=== PATIENT | female | born 1940 | race Caucasian/White ===

== ENCOUNTER 2017-06-17 17:25 | Inpatient (IN) ==
--- NOTE | 2017-06-17 17:43 | Emergency Department Note ---
Disposition Clinical Impression: Generalized weakness, Cardiac enzymes elevated Disposition: Admitted As Inpatient Condition: Fair Referrals: Garrick Bruno MD [Primary Care Provider] - Forms: ED Satisfaction Letter Time of Disposition: 19:03 Weakness HPI - General Chief complaint: ED Weakness Stated complaint: fall/Weakness Time Seen by Provider: 06/17/17 17:30 Source: patient, EMS Mode of arrival: EMS Limitations: no limitations Nursing Notes Reviewed: Yes Vital Signs Reviewed: Yes - History of Present Illness HPI Narrative: Patient is a 77-year-old who lives by herself husbands in a residential who talked her this morning about 8:00 and then family members could not get a hold of her and the hemoglobin house afternoon and found her on the floor. She says she fell could not get up generalized weakness. She denies striking her head. She is oriented to person and place. She was able to get the month and the day but could not get the year right. Pt Subjective Complaint: generalized weakness/fatigue, other Onset (ago): hour(s) (All 10-12) Duration: constant Location: generalized Migration: none Improves with: none Worsens with: none Context: other (No weakness) All systems ED: reviewed and negative except as stated. Constitutional: Denies: fever, chills, weakness, weight change Eyes: Denies: eye pain, eye discharge, vision change ENT ED: Denies: ear pain, throat pain, dental pain, hearing loss, epistaxis, congestion, dysphagia Cardiovascular: Denies: chest pain, palpitations, dyspnea on exertion, edema, syncope Respiratory: Denies: cough, dyspnea, wheezes, hemoptysis, stridor Gastrointestinal: Denies: abdominal pain, nausea, vomiting, diarrhea, constipation, hematemesis, melena, hematochezia Genitourinary: Denies: dysuria, frequency, hematuria, discharge Musculoskeletal: Denies: back pain, neck pain, arthralgia, myalgia Integumentary: Denies: rash, abrasion, lesions Neurological: Reports: weakness. Denies: headache, numbness, paresthesias, confusion, abnormal gait, vertigo Psychiatric: Denies: anxiety, depression, suicidal thoughts, homicidal thoughts , auditory hallucinations, visual hallucinations Endocrine: Denies: fatigue Hematological/Lymphatic: Denies: easy bleeding, easy bruising Allergic/Immunologic: Denies: facial swelling, urticaria Physical Exam - General Limitations: no limitations General appearance: alert, in no apparent distress - Head Head exam: atraumatic, normocephalic, normal inspection - Eye Eye exam: Present: normal appearance, PERRL, EOMI - Expanded Eye Exam Pupils: Left: reactive - ENT ENT exam: normal exam, normal oropharynx, mucous membranes moist - Expanded ENT Exam External ear exam: Present: normal external inspection Mouth exam: Present: normal external inspection Teeth exam: Present: normal inspection Throat exam: Present: normal inspection - Neck Neck exam: Present: normal inspection, full ROM, trachea midline - Chest Chest inspection: Present: normal inspection, symmetric chest wall rise - Respiratory Respiratory exam: Present: normal lung sounds bilaterally - Cardiovascular Cardiovascular exam: Present: regular rate, normal rhythm, normal heart sounds - Abdominal Exam Abdominal exam: Present: soft, Non-Tender. Absent: tenderness, distention, guarding, rebound, rigidity - Extremities Exam Extremities exam: Present: normal inspection, full ROM. Absent: tenderness, pedal edema - Expanded Upper Extremity Exam Shoulder exam: Present: normal inspection, full ROM Arm exam: Present: normal inspection, full ROM Elbow exam: Present: normal inspection, full ROM Forearm/Wrist exam: Present: normal inspection, full ROM Hand exam: Present: normal inspection, full ROM Vascular exam: Normal: capillary refill, radial pulse - Expanded Lower Extremity Exam Hip/Pelvis exam: Present: normal inspection, full ROM Upper leg exam: Present: normal inspection, full ROM Knee exam: Present: normal inspection, full ROM Lower leg exam: Present: normal inspection, full ROM Ankle exam: Present: normal inspection, full ROM Foot/toe exam: Present: normal inspection, full ROM Neurovascular/Tendon exam: Absent: motor deficit, sensory deficit, tendon deficit - Back Exam Back exam: Present: normal inspection, full ROM. Absent: tenderness - Neurological Exam Neurological exam: Present: alert, oriented X3 - Expanded Neurological Exam Patient oriented to: Present: person, place, time Coma Scale Eye Opening: Spontaneous Coma Scale Motor Response: Obeys Commands Coma Scale Verbal Response: Oriented Coma Scale Total: 15 - Psychiatric Psychiatric exam: Present: normal affect, normal mood - Skin Skin exam: Present: warm, dry, intact, normal color Course - Reevaluation(s) Reevaluation #1: Patient was fell and was down on the ground about 10 hours. She has generalized weakness. She does have elevated CK. apartment maintenance worker actually knows her and her who is her caregiver is in a residential and the social media job titles actually thought she was in a residential does not feel that she safe to go home. Also has what appears to be a UTI. Time: 19:38 - Consultations Consultation #1: Discussed with bettye Acosta. Time: 19:40 Vital Signs Temperature 97.6 F 06/17/17 17:29 Pulse Rate 99 06/17/17 17:29 Respiratory Rate 18 06/17/17 17:29 Blood Pressure 167/110 06/17/17 17:29 O2 Sat by Pulse Oximetry 92 06/17/17 17:29 Temperature 97.6 F 06/17/17 17:29 Pulse Rate 91 06/17/17 19:35 Respiratory Rate 18 06/17/17 19:35 Blood Pressure 134/107 06/17/17 19:35 O2 Sat by Pulse Oximetry 99 06/17/17 19:35 Oxygen Delivery Oxygen Delivery Room Air Weakness - Lab Data Lab results reviewed: Yes I reviewed the patient's lab results. Result diagrams: 06/17/17 17:56 06/17/17 17:56 Lab Results 06/17/17 06/17/17 06/17/17 Range/Units 17:56 17:56 17:56 WBC 10.0 (4.3-11.1) K/mcL RBC 4.43 (3.82-4.97) M/mcL Hgb 13.4 (11.5-15.4) g/dL Hct 40.7 (35.3-44.9) % MCV 91.9 (83.0-100.0) fL MCH 30.2 (28.0-33.3) pg MCHC 32.9 (31.6-35.5) g/dL RDW 13.3 (11.5-14.5) % Plt Count 188 (140-400) K/mcL MPV 10.1 (9.4-12.4) fL Immature Gran % 0.4 (0-4) % Seg Neutrophils % 88.4 % Lymphocytes % 4.0 % Monocytes % 6.9 % Eosinophils % 0.0 % Basophils % 0.3 % Neutrophils # 8.8 (1.6-8.9) K/mcL Lymphocytes # 0.4 L (0.6-4.6) K/mcL Monocytes # 0.7 (0.0-1.3) K/mcL Eosinophils # 0.0 (0.0-0.6) K/mcL Basophils # 0.0 (0.0-0.2) K/mcL PT (9.4-12.1) Seconds INR APTT (26.0-36.0) Seconds Sodium 140 (136-145) mEq/L Potassium 3.1 L (3.5-5.1) mEq/L Chloride 103 (98-107) mEq/L Carbon Dioxide 28 (23-29) mEq/L BUN 11 (8-23) mg/dL Creatinine 0.39 L (0.60-1.20) mg/dL Est GFR ( Amer) > 60 (> 60) Est GFR (Non-Af Amer) > 60 (> 60) BUN/Creatinine Ratio 28 H (6-26) Glucose 107 H (70-105) mg/dL Calculated Osmolality 290 (280-300) Calcium 9.5 (8.6-10.3) mg/dL Total Bilirubin 2.1 H (0.3-1.0) mg/dL Direct Bilirubin 0.4 H (0.0-0.2) mg/dL Indirect Bilirubin 1.7 H (0.0-1.2) mg/dL AST 49 H (13-39) Units/L ALT 25 (7-52) Units/L Alkaline Phosphatase 95 (34-104) Units/L Creatine Kinase 783 H (30-223) Units/L Troponin I 0.04 H* (< 0.04) ng/mL Serum Total Protein 7.0 (6.4-8.9) g/dL Albumin 3.7 (3.5-5.7) g/dL Globulin 3.3 (2.4-3.5) g/dL Albumin/Globulin Ratio 1.1 (1.1-2.2) Amylase 18 L (29-103) Units/L Lipase 6 L (11-82) Units/L Urine Color (Yellow) Urine Clarity (Clear) Urine pH (5.0-8.0) pH Units Ur Specific Bunch (1.010-1.025) Urine Protein (Neg-Trace) mg/dL Urine Glucose (UA) (Normal) mg/dL Urine Ketones (Negative) mg/dL Urine Blood (Negative) Urine Nitrite (Negative) Urine Bilirubin (Negative) Urine Urobilinogen (Normal) mg/dL Ur Leukocyte Esterase (Negative) Urine Microscopic RBC (0-3) per hpf Urine Microscopic WBC (0-3) per hpf Ur Squamous Epith Cells (None-Few) per lpf Ur Renal Epithelial Cell (None-Few) per hpf Urine Bacteria (None-Few) per hpf Hyaline Casts (None-Few) per lpf Ur Culture Indicated? (NO) 06/17/17 06/17/17 Range/Units 17:56 18:21 WBC (4.3-11.1) K/mcL RBC (3.82-4.97) M/mcL Hgb (11.5-15.4) g/dL Hct (35.3-44.9) % MCV (83.0-100.0) fL MCH (28.0-33.3) pg MCHC (31.6-35.5) g/dL RDW (11.5-14.5) % Plt Count (140-400) K/mcL MPV (9.4-12.4) fL Immature Gran % (0-4) % Seg Neutrophils % % Lymphocytes % % Monocytes % % Eosinophils % % Basophils % % Neutrophils # (1.6-8.9) K/mcL Lymphocytes # (0.6-4.6) K/mcL Monocytes # (0.0-1.3) K/mcL Eosinophils # (0.0-0.6) K/mcL Basophils # (0.0-0.2) K/mcL PT 12.1 (9.4-12.1) Seconds INR 1.1 APTT 29.2 (26.0-36.0) Seconds Sodium (136-145) mEq/L Potassium (3.5-5.1) mEq/L Chloride (98-107) mEq/L Carbon Dioxide (23-29) mEq/L BUN (8-23) mg/dL Creatinine (0.60-1.20) mg/dL Est GFR ( Amer) (> 60) Est GFR (Non-Af Amer) (> 60) BUN/Creatinine Ratio (6-26) Glucose (70-105) mg/dL Calculated Osmolality (280-300) Calcium (8.6-10.3) mg/dL Total Bilirubin (0.3-1.0) mg/dL Direct Bilirubin (0.0-0.2) mg/dL Indirect Bilirubin (0.0-1.2) mg/dL AST (13-39) Units/L ALT (7-52) Units/L Alkaline Phosphatase (34-104) Units/L Creatine Kinase (30-223) Units/L Troponin I (< 0.04) ng/mL Serum Total Protein (6.4-8.9) g/dL Albumin (3.5-5.7) g/dL Globulin (2.4-3.5) g/dL Albumin/Globulin Ratio (1.1-2.2) Amylase (29-103) Units/L Lipase (11-82) Units/L Urine Color Yellow (Yellow) Urine Clarity Cloudy A (Clear) Urine pH 6.5 (5.0-8.0) pH Units Ur Specific Bunch 1.018 (1.010-1.025) Urine Protein 100 H (Neg-Trace) mg/dL Urine Glucose (UA) Normal (Normal) mg/dL Urine Ketones 15 H (Negative) mg/dL Urine Blood Small H (Negative) Urine Nitrite Positive A (Negative) Urine Bilirubin Negative (Negative) Urine Urobilinogen Normal (Normal) mg/dL Ur Leukocyte Esterase Small H (Negative) Urine Microscopic RBC 0-3 (0-3) per hpf Urine Microscopic WBC 30-50 H (0-3) per hpf Ur Squamous Epith Cells None Seen (None-Few) per lpf Ur Renal Epithelial Cell Few (None-Few) per hpf Urine Bacteria Many H (None-Few) per hpf Hyaline Casts Moderate H (None-Few) per lpf Ur Culture Indicated? YES A (NO) - Radiology Data Radiology results reviewed: Yes I reviewed the patient's radiology results. Chest X-Ray 06/17/17 17:35 IMPRESSION: 1. Cardiomegaly. 2. Calcific atherosclerosis aorta. 3. Irregularity proximal medial left humerus could be related to fracture or chronic glenohumeral osteoarthritic change. 4. No acute pulmonary abnormality evident. D/ / Henrique Kenney / Henrique Kenney Interpreting Provider: Henrique Kenney Head CT 06/17/17 17:36 IMPRESSION: No acute intracranial abnormality. D/ / Henrique Kenney / Henrique Kenney Interpreting Provider: Henrique Kenney - EKG Data EKG attestation: Yes I reviewed and interpreted this EKG. Rate: normal Rhythm: A.Fib Interpretation: other (New A. fib) NIH Stroke Scale - Level of Consciousness LOC: Alert - LOC Questions LOC Questions: Answers both correctly - LOC Commands LOC Commands: Performs both correctly - Best Gaze Best Gaze: Normal - Visual Visual: No visual loss - Facial Palsy Facial Palsy: Normal - Motor Arms Motor Arm-Left: No drift for 10 seconds Motor Arm-Right: No drift for 10 seconds - Motor Legs Motor Leg-Left: No drift for 5 seconds Motor Leg-Right: No drift for 5 seconds - Limb Ataxia Limb Ataxia: Normal, No Ataxia - Sensory Sensory: Normal - Best Language Best Language: No aphasia - Dysarthria Dysarthria: Normal - Extinction and Inattention Extinction and Inattention: Normal - NIHSS Total Score NIHSS Total Score: 0
[2017-06-17 18:18] LABS: Basophils % 0.3 %; Hematocrit 40.7 % (35.3-44.9); Hemoglobin 13.4 g/dL (11.5-15.4); Immature Granulocytes % 0.4 % (0-4); Lymphocytes # 0.4 K/mcL (0.6-4.6); Mean Corpuscular HGB Conc 32.9 g/dL (31.6-35.5); Mean Corpuscular Hemoglobin 30.2 pg (28.0-33.3); Mean Corpuscular Volume 91.9 fL (83.0-100.0); Mean Platelet Volume 10.1 fL (9.4-12.4); Monocytes # 0.7 K/mcL (0.0-1.3); Monocytes % 6.9 %; Neutrophils # 8.8 K/mcL (1.6-8.9); Platelet Count 188 K/mcL (140-400); Red Blood Count 4.43 M/mcL (3.82-4.97); Red Cell Distribution Width 13.3 % (11.5-14.5); Segmented Neutrophils % 88.4 %
[2017-06-17 18:32] LABS: Alanine Aminotransferase 25 Units/L (7-52); Albumin 3.7 g/dL (3.5-5.7); Albumin/Globulin Ratio 1.1 (1.1-2.2); Alkaline Phosphatase 95 Units/L (34-104); Amylase 18 Units/L (29-103); Aspartate Amino Transferase 49 Units/L (13-39); BUN/Creatinine Ratio 28 (6-26); Bilirubin,Direct 0.4 mg/dL (0.0-0.2); Bilirubin,Indirect 1.7 mg/dL (0.0-1.2); Bilirubin,Total 2.1 mg/dL (0.3-1.0); Blood Urea Nitrogen 11 mg/dL (8-23); Calcium 9.5 mg/dL (8.6-10.3); Carbon Dioxide 28 mEq/L (23-29); Chloride 103 mEq/L (98-107); Creatine Kinase 783 Units/L (30-223); Globulin 3.3 g/dL (2.4-3.5); Glucose 107 mg/dL (70-105); Lipase 6 Units/L (11-82); Osmolality,Calculated 290 (280-300); Potassium 3.1 mEq/L (3.5-5.1); Sodium 140 mEq/L (136-145); eGFR For African Americans > 60 (> 60); eGFR For Non-African Americans > 60 (> 60)
[2017-06-17 18:41] LABS: Bilirubin,Urine Negative (Negative); Blood,Urine Small (Negative); Clarity,Urine Cloudy (Clear); Color,Urine Yellow (Yellow); Glucose,Urine (UA) Normal (Normal); Ketones,Urine 15 mg/dL (Negative); Leukocyte Esterase,Urine Small (Negative); Nitrite,Urine Positive (Negative); PH,Urine 6.5 pH Units (5.0-8.0); Protein,Urine 100 mg/dL (Neg-Trace); Specific Gravity,Urine 1.018 (1.010-1.025); Urobilinogen,Urine Normal (Normal)
[2017-06-17 18:43] LABS: Bacteria,Urine Many per hpf (None-Few); RBC,Urine 0-3 per hpf (0-3); Squamous Epithelial Cell,Urine None Seen per lpf (None-Few); WBC,Urine 30-50 per hpf (0-3)
[2017-06-17 18:57] LABS: INR 1.1; Prothrombin Time 12.1 Seconds (9.4-12.1)
[2017-06-17 19:00] LABS: Renal Epithelial Cells,Urine Few per hpf (None-Few)
[2017-06-17 19:00] LABS: Activated Partial Thrombo Time 29.2 Seconds (26.0-36.0)
[2017-06-17 19:01] LABS: Hyaline Casts,Urine Moderate per lpf (None-Few)
[2017-06-17] MEDS: 0.9 % Sodium Chloride 1,000 ML IVC SCH (19:36)
[2017-06-17] MEDS ORDERED: cefTRIAXone 1,000 MG in Water for inj. (sterile) 20 ML 10 ML IVP ONE (19:39)
[2017-06-18] MEDS ORDERED: Naloxone 0.4 MG/ML INJ IVP PRN (02:59)
[2017-06-18] MEDS ORDERED: Acetaminophen 325 MG TABLET PO PRN (02:59)
[2017-06-18] MEDS ORDERED: 0.9 % Sodium Chloride 1,000 ML IVC SCH (03:00)
--- NOTE | 2017-06-18 03:26 | Internal Med History&Physical ---
Date of Encounter: 06/18/17 Time of Encounter: 03:18 Assessment and Plan (1) Fall Current visit: Yes Status: Acute 77/female Multiple comorbid conditions. Noted that she had a fall and was on the ground for unknown duration of time. Was brought to the emergency room for further evaluation. Biochemically elevated troponin likely secondary to demand ischemia Elevated CK likely secondary to rhabdomyolysis Unknown cause for elevated bilirubin. Imaging: Head CT: Negative for any acute event. EKG reviewed: Unlikely atrial fibrillation as P waves are present, likely multifocal atrial tachycardia. On examination: Patient has multiple bruises on her back. On the right shoulder patient has a 5 cm x 9 cm bruise present No obvious head injury noted. Assessment: Fall secondary to possibly underlying urinary tract infection Rhabdomyolysis is secondary to the fall. With associated multiple comorbid conditions. Plan: Admit is a inpatient. Fall precaution. Blood culture: IV ceftriaxone 1 g 24 hours. Replace potassium intravenously/orally. PTOT evaluation. bone worker consult. Of note: I examined this patient in [id number] Long with the charge nurse Priya was present. Explained patient at length regarding the plan of care Qualifiers: Encounter type: initial encounter Qualified Code(s): W19.XXXA - Unspecified fall, initial encounter (2) UTI (urinary tract infection) Current visit: Yes Status: Acute See above Qualifiers: Urinary tract infection type: acute cystitis Hematuria presence: without hematuria Qualified Code(s): N30.00 - Acute cystitis without hematuria (3) Hypertension Current visit: Yes Status: Acute Patient is known to have a elevated blood pressure. At this point her blood pressure is very well controlled. We will resume the home medication. Qualifiers: Hypertension type: essential hypertension Qualified Code(s): I10 - Essential (primary) hypertension (4) Cardiac enzymes elevated Current visit: Yes Status: Acute Cardiac enzymes is likely secondary to demand ischemia. We will cycle the troponin. (5) DVT prophylaxis Current visit: Yes Status: Acute SCD Medical decision making: This patient has a moderate to severe risk of worsening in spite of being on appropriate medication due to the underlying chronic comorbid conditions. Internal Medicine - H&P: HPI Chief complaint: fall Admitted From: Emergency Dept Plans for Post Hospital Care: Home History of present illness: Ms. Tena is a 77 year old female whose primary care provider is Dr Garrick Bruno. she has background medical history of hypertension, urinary incontinence and history of previous fall. This morning patient went and saw her in a shelter and after that she went back to her own house. Multiple family members were tried to call her. She was not responding to their call. One of the family member went to her house and found that she was on the floor for unknown duration of time. Patient was made to get up from the floor and was brought to the emergency department for further evaluation. Patient is very lethargic, she answers the questions in monosyllables, oriented to the patient she claims that she is not used to the hospital environment and that is why she is very stressful in the hospital. Patient is alert oriented and she knows that she had a fall but she was so weak that she was not able to get up and ask for help. Patient denies chest pain, nausea, vomiting, abdominal pain, dizziness and diarrhea. Workup in the emergency room: Patient was evaluated in the emergency room. Basic labs were drawn. Noted that creatinine kinase is elevated. Patient UA is suggestive of urinary tract infection. CT head was negative for any acute abnormalities. Reason for admission: Fall in a patient who has likely urinary tract infection with multiple comorbidities. Past Med Surg Social Fam HX - Past Medical History Medical history: hypertension Psychiatric history: no psych history - Social History Smoking Status: Never smoker Smokeless Tobacco Status: No Alcohol use: none Drug use: none Internal Medicine - H&P: Meds Atenolol [Tenormin] 50 mg PO BID 06/17/17 [History] Calcium Citrate 200 mg PO BID 06/17/17 [History] Multivitamin [One Daily Essential] 1 each PO DAILY 06/17/17 [History] Oxybutynin [Ditropan] 5 mg PO BID 06/17/17 [History] Paroxetine HCl [Paxil] 10 mg PO QAM 06/17/17 [History] Potassium Chloride [Klor-Con 10] 10 meq PO DAILY 06/17/17 [History] 3 Allergy/AdvReac Type Severity Reaction Status Date / Time clarithromycin [From Biaxin] AdvReac See Verified 06/17/17 20:17 Comments codeine AdvReac See Verified 06/17/17 20:17 Comments Zolpidem [From Ambien] AdvReac See Verified 06/17/17 20:17 Comments All Systems PM: A 10-system review of systems was performed and is negative for pertinent findings except as documented above in the HPI. - Constitutional Constitutional: chills, fatigue, falls, lethargy, malaise, weakness - Constitutional Vitals: Temp Pulse Resp BP Pulse Ox 98.4 F 84 16 159/105 96 06/17/17 20:40 06/18/17 00:30 06/18/17 00:30 06/18/17 00:30 06/18/17 00:30 General appearance: Present: A&O X 3, pleasant, no acute distress, answers questions appropriately - Head Head exam: Present: atraumatic, normocephalic - Eye Eye exam: Present: PERRL, conjuntiva pink, sclera anicteric Pupils: Present: PERRL - Neck Neck exam general surgery: Present: supple, trachea midline. Absent: lymphadenopathy - Respiratory Respiratory exam: Present: CTAB. Absent: accessory muscle use, rales, rhonchi, wheezes - Cardiovascular Cardiovascular exam: Present: RRR, +S1, +S2. Absent: diastolic murmur, gallop, rubs, systolic murmur - GI/Abdominal GI/Abdominal exam: Present: normal bowel sounds, soft, no peritoneal signs. Absent: distended, tenderness - Extremities Exam Extremities exam: Present: warm, radial pulses palpable and symmetrical. Absent : calf tenderness, cyanotic, pedal edema - Neurological Exam Neurological exam: Present: CN II-XII intact, oriented X3, no focal deficits. Absent: pronater drift, facial droop, speech deficit - Skin Skin exam: Present: dry, intact Internal Med - H&P Results - Labs CBC & Chem 7: 06/17/17 17:56 06/17/17 17:56
[2017-06-18 04:28] LABS: Basophils % 0.3 %; Eosinophils % 0.5 %; Hematocrit 35.1 % (35.3-44.9); Immature Granulocytes % 0.3 % (0-4); Lymphocytes # 0.6 K/mcL (0.6-4.6); Lymphocytes % 8.2 %; Mean Corpuscular HGB Conc 33.6 g/dL (31.6-35.5); Mean Corpuscular Hemoglobin 30.9 pg (28.0-33.3); Mean Corpuscular Volume 91.9 fL (83.0-100.0); Mean Platelet Volume 10.5 fL (9.4-12.4); Monocytes # 0.6 K/mcL (0.0-1.3); Monocytes % 7.9 %; Neutrophils # 6.5 K/mcL (1.6-8.9); Platelet Count 175 K/mcL (140-400); Red Blood Count 3.82 M/mcL (3.82-4.97); Red Cell Distribution Width 13.3 % (11.5-14.5); Segmented Neutrophils % 82.8 %
[2017-06-18 04:31] LABS: Hemoglobin 11.8 g/dL (11.5-15.4)
[2017-06-18 04:50] LABS: Alanine Aminotransferase 22 Units/L (7-52); Albumin 3.1 g/dL (3.5-5.7); Alkaline Phosphatase 80 Units/L (34-104); Aspartate Amino Transferase 43 Units/L (13-39); BUN/Creatinine Ratio 32 (6-26); Bilirubin,Total 1.8 mg/dL (0.3-1.0); Blood Urea Nitrogen 12 mg/dL (8-23); Calcium 8.9 mg/dL (8.6-10.3); Carbon Dioxide 25 mEq/L (23-29); Chloride 108 mEq/L (98-107); Chol/HDL Ratio 2.2 (0-4.9); Cholesterol 151 mg/dL (< 200); Glucose 73 mg/dL (70-105); HDL Cholesterol 68 mg/dL (40-59); LDL Cholesterol,Calculated 69 mg/dL (0-99); Magnesium 1.9 mg/dL (1.6-2.6); Osmolality,Calculated 288 (280-300); Phosphorous 2.7 mg/dL (2.7-4.5); Potassium 3.1 mEq/L (3.5-5.1); Sodium 140 mEq/L (136-145); Total Protein 6.1 g/dL (6.4-8.9); Triglycerides 68 mg/dL (< 150); eGFR For African Americans > 60 (> 60); eGFR For Non-African Americans > 60 (> 60)
[2017-06-18] MEDS: 0.9 % Sodium Chloride 1,000 ML IVC SCH (05:24)
[2017-06-18] MEDS: Multivit/Ca/Min/Fe/FA 1 TAB TABLET PO SCH (09:28)
--- NOTE | 2017-06-18 11:18 | Event Note ---
Date of Encounter: 06/18/17 Time of Encounter: 11:18 77-year-old female who was admitted following a fall, likely rhabdomyolysis, urinary tract infection. She has a history of multiple falls in the past. The patient is home alone, and is very resistant to going to a assisted. She is to be home alone. We will continue current management, we will follow the urine culture sensitivity, we will consult psychiatry for decisional capacity.
[2017-06-18] MEDS ORDERED: cefTRIAXone 1,000 MG in Water for inj. (sterile) 20 ML 20 ML IVPB SCH (12:00)
--- NOTE | 2017-06-18 16:32 | Consult Note ---
Date of Encounter: 06/18/17 Time of Encounter: 16:26 Assessment & Recommendation (1) Generalized weakness Current visit: Yes Status: Acute Assessment & Recommendation: Client seems to be mentating fairly well although she greatly minimizes her physical health issues. Doubt she is safe to be alone but I would not say she lacks capacity at this point. When this documentation writer spoke with her she understood it was the team's recommendation that she go to a [facility]/rehab facility. She was able to say why this is the recommendation and what the risks are to her if she refuses. She did say her niece and nephew are looking at placement options for her and that she trusts their judgment. Would recommend using family supports to help with this decision. Would also recommend getting a POA for client as this issue is likely to come up again. (2) UTI (urinary tract infection) Current visit: Yes Status: Acute Qualifiers: Urinary tract infection type: acute cystitis Hematuria presence: without hematuria Qualified Code(s): N30.00 - Acute cystitis without hematuria History of Present Illness Requesting Physician: Everett Hutchins Reason for consult: capacity assessment History of present illness: Ms. Tena is a 77 year old female who was admitted secondary to falling at home. Found to have a UTI. Client is wanting to return home and psychiatry was asked to assess whether she has the capacity to refuse care as she seems unable to care for herself in the home. On eval today client is pleasant but rather rambling. She denies having a mental health history. No evidence of a mood or thought disorder on exam. She is alert and oriented but goes off on tangents when talking. She is aware of the team's recommendation that she go to a [facility]. She denied needing home health services but did not seem opposed to a mcfp/rehab stay and actually said her niece and nephew are looking into placements for her. She stated she trusted their judgment. CC: Everett Hutchins Past Med Surg Social Fam HX - Past Medical History Medical history: hypertension - Past Psychiatric History Psychiatric history: Reports: no psych history Family psychiatric history: Unknown Family History of Suicide: Unknown - Social History Smoking Status: Never smoker Smokeless Tobacco Status: No Alcohol use: none Drug use: none Medications & Allergies Atenolol [Tenormin] 50 mg PO BID 06/17/17 [History] Calcium Citrate 200 mg PO BID 06/17/17 [History] Multivitamin [One Daily Essential] 1 each PO DAILY 06/17/17 [History] Oxybutynin [Ditropan] 5 mg PO BID 06/17/17 [History] Paroxetine HCl [Paxil] 10 mg PO QAM 06/17/17 [History] Potassium Chloride [Klor-Con 10] 10 meq PO DAILY 06/17/17 [History] 3 Allergy/AdvReac Type Severity Reaction Status Date / Time clarithromycin [From Biaxin] AdvReac See Verified 06/17/17 20:17 Comments codeine AdvReac See Verified 06/17/17 20:17 Comments Zolpidem [From Ambien] AdvReac See Verified 06/17/17 20:17 Comments Review of Systems Constitutional: Denies: fever, chills, weakness, weight change Eyes: Denies: eye pain, vision change Ears, Nose, Throat: Denies: ear pain, throat pain, dental pain, hearing loss, congestion Cardiovascular: Denies: chest pain, palpitations, dyspnea on exertion Respiratory: Denies: cough, dyspnea, wheezes Gastrointestinal: Denies: abdominal pain, nausea, vomiting, diarrhea, constipation Genitourinary male: Denies: urgency, dysuria, frequency, genital lesions Genitourinary female: Denies: urgency, dysuria, frequency, abnormal menses, dyspareunia Musculoskeletal: Denies: joint swelling, joint pain Integumentary: Denies: rash, lesions, pruritus Neurological: Denies: headache, weakness, numbness, memory loss Endocrine: Denies: fatigue, heat or cold intolerance Hematologic/Lymphatic: Denies: easy bruising, lymphadenopathy Allergic/Immunologic: Denies: urticaria, itchy eyes Mental Status Exam Patient orientation: Yes Person, Yes Time, Yes Place Level of alertness: Alert Patient appearance: Unkempt Behavior: calm Psychomotor activity: Normal Eye contact: Maintains Eye Contact Mood description: Euthymic/stable Affect description: congruent with mood, full range Speech pattern: Rambling Speech volume: Normal Thought process: Tangential Thought content: No Suicidal ideation, No Homicidal ideation, No Overt delusions Perceptual disturbances: No Auditory hallucinations, No Visual hallucinations Attention span: Capable of Focused Attention Memory description: Grossly Intact Patient reliability: Questionable Historian Intelligence estimate: Average Judgment: Limited Insight: Partial Results - Vital Signs Vital signs: Temp Pulse Resp BP Pulse Ox 100.1 F H 69 17 130/77 97 06/18/17 15:00 06/18/17 16:04 06/18/17 16:04 06/18/17 16:04 06/18/17 16:04 - Labs Labs: Laboratory Last Values WBC 7.8 K/mcL (4.3-11.1) 06/18/17 04:06 RBC 3.82 M/mcL (3.82-4.97) 06/18/17 04:06 Hgb 11.8 g/dL (11.5-15.4) D 06/18/17 04:06 Hct 35.1 % (35.3-44.9) L 06/18/17 04:06 MCV 91.9 fL (83.0-100.0) 06/18/17 04:06 MCH 30.9 pg (28.0-33.3) 06/18/17 04:06 MCHC 33.6 g/dL (31.6-35.5) 06/18/17 04:06 RDW 13.3 % (11.5-14.5) 06/18/17 04:06 Plt Count 175 K/mcL (140-400) 06/18/17 04:06 MPV 10.5 fL (9.4-12.4) 06/18/17 04:06 Immature Gran % 0.3 % (0-4) 06/18/17 04:06 Seg Neutrophils % 82.8 % 06/18/17 04:06 Lymphocytes % 8.2 % 06/18/17 04:06 Monocytes % 7.9 % 06/18/17 04:06 Eosinophils % 0.5 % 06/18/17 04:06 Basophils % 0.3 % 06/18/17 04:06 Neutrophils # 6.5 K/mcL (1.6-8.9) 06/18/17 04:06 Lymphocytes # 0.6 K/mcL (0.6-4.6) 06/18/17 04:06 Monocytes # 0.6 K/mcL (0.0-1.3) 06/18/17 04:06 Eosinophils # 0.0 K/mcL (0.0-0.6) 06/18/17 04:06 Basophils # 0.0 K/mcL (0.0-0.2) 06/18/17 04:06 PT 12.1 Seconds (9.4-12.1) 06/17/17 17:56 INR 1.1 06/17/17 17:56 APTT 29.2 Seconds (26.0-36.0) 06/17/17 17:56 Sodium 140 mEq/L (136-145) 06/18/17 04:06 Potassium 3.1 mEq/L (3.5-5.1) L 06/18/17 04:06 Chloride 108 mEq/L (98-107) H 06/18/17 04:06 Carbon Dioxide 25 mEq/L (23-29) 06/18/17 04:06 BUN 12 mg/dL (8-23) 06/18/17 04:06 Creatinine 0.37 mg/dL (0.60-1.20) L 06/18/17 04:06 Est GFR ( Amer) > 60 (> 60) 06/18/17 04:06 Est GFR (Non-Af Amer) > 60 (> 60) 06/18/17 04:06 BUN/Creatinine Ratio 32 (6-26) H 06/18/17 04:06 Glucose 73 mg/dL (70-105) 06/18/17 04:06 Calculated Osmolality 288 (280-300) 06/18/17 04:06 Calcium 8.9 mg/dL (8.6-10.3) 06/18/17 04:06 Phosphorus 2.7 mg/dL (2.7-4.5) 06/18/17 04:06 Magnesium 1.9 mg/dL (1.6-2.6) 06/18/17 04:06 Total Bilirubin 1.8 mg/dL (0.3-1.0) H 06/18/17 04:06 Direct Bilirubin 0.4 mg/dL (0.0-0.2) H 06/17/17 17:56 Indirect Bilirubin 1.7 mg/dL (0.0-1.2) H 06/17/17 17:56 AST 43 Units/L (13-39) H 06/18/17 04:06 ALT 22 Units/L (7-52) 06/18/17 04:06 Alkaline Phosphatase 80 Units/L (34-104) 06/18/17 04:06 Creatine Kinase 505 Units/L (30-223) H 06/18/17 04:06 Troponin I 0.04 ng/mL (< 0.04) H* 06/18/17 14:42 Serum Total Protein 6.1 g/dL (6.4-8.9) L 06/18/17 04:06 Albumin 3.1 g/dL (3.5-5.7) L 06/18/17 04:06 Globulin 3.0 g/dL (2.4-3.5) 06/18/17 04:06 Albumin/Globulin Ratio 1.0 (1.1-2.2) L 06/18/17 04:06 Triglycerides 68 mg/dL (< 150) 06/18/17 04:06 Cholesterol 151 mg/dL (< 200) 06/18/17 04:06 LDL Cholesterol, Calc 69 mg/dL (0-99) 06/18/17 04:06 VLDL Cholesterol, Calc 14 mg/dL (< 31) 06/18/17 04:06 HDL Cholesterol 68 mg/dL (40-59) H 06/18/17 04:06 Cholesterol/HDL Ratio 2.2 (0-4.9) 06/18/17 04:06 Amylase 18 Units/L (29-103) L 06/17/17 17:56 Lipase 6 Units/L (11-82) L 06/17/17 17:56 Urine Color Yellow (Yellow) 06/17/17 18:21 Urine Clarity Cloudy (Clear) A 06/17/17 18:21 Urine pH 6.5 pH Units (5.0-8.0) 06/17/17 18:21 Ur Specific Portal 1.018 (1.010-1.025) 06/17/17 18:21 Urine Protein 100 mg/dL (Neg-Trace) H 06/17/17 18:21 Urine Glucose (UA) Normal mg/dL (Normal) 06/17/17 18:21 Urine Ketones 15 mg/dL (Negative) H 06/17/17 18:21 Urine Blood Small (Negative) H 06/17/17 18:21 Urine Nitrite Positive (Negative) A 06/17/17 18:21 Urine Bilirubin Negative (Negative) 06/17/17 18:21 Urine Urobilinogen Normal mg/dL (Normal) 06/17/17 18:21 Ur Leukocyte Esterase Small (Negative) H 06/17/17 18:21 Urine Microscopic RBC 0-3 per hpf (0-3) 06/17/17 18:21 Urine Microscopic WBC 30-50 per hpf (0-3) H 06/17/17 18:21 Ur Squamous Epith Cells None Seen per lpf (None-Few) 06/17/17 18:21 Ur Renal Epithelial Cell Few per hpf (None-Few) 06/17/17 18:21 Urine Bacteria Many per hpf (None-Few) H 06/17/17 18:21 Hyaline Casts Moderate per lpf (None-Few) H 06/17/17 18:21 Ur Culture Indicated? YES (NO) A 06/17/17 18:21 Consult Discharge Plan - Plan Referrals: Garrick Bruno MD [Primary Care Provider] -
[2017-06-18] MEDS: cefTRIAXone 1,000 MG in Water for inj. (sterile) 20 ML 20 ML IVPB SCH (20:38)
[2017-06-19 05:08] LABS: Basophils % 0.2 %; Eosinophils # 0.2 K/mcL (0.0-0.6); Eosinophils % 2.3 %; Hematocrit 35.5 % (35.3-44.9); Hemoglobin 11.7 g/dL (11.5-15.4); Immature Granulocytes % 0.4 % (0-4); Lymphocytes # 0.8 K/mcL (0.6-4.6); Lymphocytes % 9.5 %; Mean Platelet Volume 10.2 fL (9.4-12.4); Monocytes # 0.8 K/mcL (0.0-1.3); Monocytes % 9.1 %; Neutrophils # 6.7 K/mcL (1.6-8.9); Platelet Count 194 K/mcL (140-400); Red Cell Distribution Width 13.5 % (11.5-14.5); Segmented Neutrophils % 78.5 %
[2017-06-19 05:39] LABS: BUN/Creatinine Ratio 32 (6-26); Blood Urea Nitrogen 12 mg/dL (8-23); Calcium 8.8 mg/dL (8.6-10.3); Carbon Dioxide 27 mEq/L (23-29); Chloride 106 mEq/L (98-107); Creatine Kinase 260 Units/L (30-223); Glucose 103 mg/dL (70-105); Osmolality,Calculated 284 (280-300); Potassium 3.9 mEq/L (3.5-5.1); Sodium 137 mEq/L (136-145); eGFR For African Americans > 60 (> 60); eGFR For Non-African Americans > 60 (> 60)
[2017-06-19] MEDS: Multivit/Ca/Min/Fe/FA 1 TAB TABLET PO SCH (08:57)
--- NOTE | 2017-06-19 11:17 | Internal Med Progress Note ---
Date of Encounter: 06/19/17 Time of Encounter: 11:00 - Assessment and plan (1) Cardiac enzymes elevated Current Visit: Yes Status: Resolved Assessment and plan: Adynamic, non-ischemic. Trop 0.04-0.04 (2) DVT prophylaxis Current Visit: Yes Status: Acute Assessment and plan: Heparin SQ (3) Fall Current Visit: Yes Status: Acute Assessment and plan: PTOT eval noted Continue fall precautions Qualifiers: Encounter type: initial encounter Qualified Code(s): W19.XXXA - Unspecified fall, initial encounter (4) Hypertension Current Visit: Yes Status: Chronic Assessment and plan: Mostly controlled for age, continue tenormin. Consider adding Norvasc id necessary Qualifiers: Hypertension type: essential hypertension Qualified Code(s): I10 - Essential (primary) hypertension (5) UTI (urinary tract infection) Current Visit: Yes Status: Acute Assessment and plan: Due to E.coli, continue rocephin, sensitivity is pending Patient had one fever of 100.1, not septic Blood culture is negative Qualifiers: Urinary tract infection type: acute cystitis Hematuria presence: without hematuria Qualified Code(s): N30.00 - Acute cystitis without hematuria (6) Hypokalemia Current Visit: Yes Status: Resolved Assessment and plan: 3.1 06/18, improved with replacement - Subjective Interval history: Seen and evaluated at the bedside Patient with fall, and E.coli UTI She also had hypokalemia on arrival which has since improved - Constitutional Vitals: Temp Pulse Resp BP Pulse Ox 99 F 67 18 169/82 99 06/19/17 07:11 06/19/17 07:11 06/19/17 07:11 06/19/17 07:11 06/19/17 07:11 General appearance: Present: disheveled, A&O X 3, pleasant, no acute distress, answers questions appropriately - Head Head exam: Present: atraumatic, normocephalic - Eye Eye exam: Present: PERRL, conjuntiva pink, sclera anicteric Pupils: Present: PERRL - Neck Neck exam general surgery: Present: supple, trachea midline. Absent: lymphadenopathy - Respiratory Respiratory exam: Present: CTAB. Absent: accessory muscle use, rales, rhonchi, wheezes - Cardiovascular Cardiovascular exam: Present: RRR, +S1, +S2. Absent: diastolic murmur, gallop, rubs, systolic murmur - GI/Abdominal GI/Abdominal exam: Present: normal bowel sounds, soft, no peritoneal signs. Absent: distended, tenderness - Extremities Exam Extremities exam: Present: warm, radial pulses palpable and symmetrical. Absent : calf tenderness, cyanotic, pedal edema - Neurological Exam Neurological exam: Present: alert, CN II-XII intact, oriented X3, no focal deficits. Absent: pronater drift, facial droop, speech deficit - Skin Skin exam: Present: dry, intact Internal Medicine: Result - Labs CBC & Chem 7: 06/19/17 04:41 06/19/17 04:41 Labs: Short CBC 06/19/17 Range/Units 04:41 WBC 8.6 (4.3-11.1) K/mcL Hgb 11.7 (11.5-15.4) g/dL Hct 35.5 (35.3-44.9) % Plt Count 194 (140-400) K/mcL Neutrophils # 6.7 (1.6-8.9) K/mcL BMP 06/19/17 04:41 Sodium 137 Potassium 3.9 Chloride 106 Carbon Dioxide 27 BUN 12 Creatinine 0.37 L Glucose 103 Calcium 8.8 Cardiac Enzymes 06/18/17 Range/Units 14:42 Troponin I 0.04 H* (< 0.04) ng/mL - ABG Interpretation ABG results: PT/INR, D-dimer PT 12.1 Seconds (9.4-12.1) 06/17/17 17:56 Consult Discharge Plan - Plan Instructions: Urinary Tract Infection in Women (DC), Chronic Hypertension (DC) , Fall Prevention (DC) Referrals: Garrick Bruno MD [Primary Care Provider] -
[2017-06-19] MEDS: cefTRIAXone 1,000 MG in Water for inj. (sterile) 20 ML 20 ML IVPB SCH (20:25)
[2017-06-20] MEDS: Multivit/Ca/Min/Fe/FA 1 TAB TABLET PO SCH (09:55)
--- NOTE | 2017-06-20 13:20 | Internal Med Progress Note ---
Date of Encounter: 06/20/17 Time of Encounter: 13:20 - Assessment and plan (1) Cardiac enzymes elevated Current Visit: Yes Status: Resolved Assessment and plan: Adynamic, non-ischemic. Trop 0.04-0.04 (2) DVT prophylaxis Current Visit: Yes Status: Acute Assessment and plan: Heparin SQ (3) Fall Current Visit: Yes Status: Acute Assessment and plan: PTOT eval noted-For SNF placement Continue fall precautions Qualifiers: Encounter type: initial encounter Qualified Code(s): W19.XXXA - Unspecified fall, initial encounter (4) Hypertension Current Visit: Yes Status: Chronic Assessment and plan: Mostly controlled for age, continue tenormin. Added 10mg Norvasc today, continue to monitor Qualifiers: Hypertension type: essential hypertension Qualified Code(s): I10 - Essential (primary) hypertension (5) UTI (urinary tract infection) Current Visit: Yes Status: Acute Assessment and plan: Due to E.coli, pansensitive continue rocephin Patient had one fever of 100.1 06/18, not septic Blood culture is negative Qualifiers: Urinary tract infection type: acute cystitis Hematuria presence: without hematuria Qualified Code(s): N30.00 - Acute cystitis without hematuria (6) Hypokalemia Current Visit: Yes Status: Resolved Assessment and plan: 3.1 06/18, improved with replacement - Subjective Interval history: Seen and evaluated at the bedside Patient with fall, and E.coli UTI No new complains, additional blood pressure control needed overnight Patient is asymptomatic - Constitutional Vitals: Temp Pulse Resp BP Pulse Ox 98.5 F 73 18 118/70 96 06/20/17 10:30 06/20/17 10:30 06/20/17 10:30 06/20/17 12:07 06/20/17 10:30 General appearance: Present: cachectic, disheveled, A&O X 3, pleasant, no acute distress, answers questions appropriately - Head Head exam: Present: atraumatic, normocephalic - Eye Eye exam: Present: PERRL, conjuntiva pink, sclera anicteric Pupils: Present: PERRL - Neck Neck exam general surgery: Present: supple, trachea midline. Absent: lymphadenopathy - Respiratory Respiratory exam: Present: CTAB. Absent: accessory muscle use, rales, rhonchi, wheezes - Cardiovascular Cardiovascular exam: Present: RRR, +S1, +S2. Absent: diastolic murmur, gallop, rubs, systolic murmur - GI/Abdominal GI/Abdominal exam: Present: normal bowel sounds, soft, no peritoneal signs. Absent: distended, tenderness - Extremities Exam Extremities exam: Present: warm, radial pulses palpable and symmetrical. Absent : calf tenderness, cyanotic, pedal edema - Neurological Exam Neurological exam: Present: alert, CN II-XII intact, oriented X3, no focal deficits. Absent: pronater drift, facial droop, speech deficit - Skin Skin exam: Present: dry, intact Internal Medicine: Result - Labs CBC & Chem 7: 06/19/17 04:41 06/19/17 04:41 - ABG Interpretation ABG results: PT/INR, D-dimer PT 12.1 Seconds (9.4-12.1) 06/17/17 17:56 - VTE Documentation of Mechanical Device: Intermittent pneumatic compression device Consult Discharge Plan - Plan Instructions: Urinary Tract Infection in Women (DC), Chronic Hypertension (DC) , Fall Prevention (DC) Referrals: Garrick Bruno MD [Primary Care Provider] -
[2017-06-20] MEDS: *HR* Heparin 5,000 UNIT/ML VIAL SQ SCH ×2 (13:37→21:21)
[2017-06-20] MEDS: amLODIPine 5 MG TABLET PO SCH (16:38)
--- NOTE | 2017-06-20 20:34 | Electrocardiograph Report ---
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
[2017-06-20] MEDS: cefTRIAXone 1,000 MG in Water for inj. (sterile) 20 ML 20 ML IVPB SCH (21:18)
[2017-06-21] MEDS: *HR* Heparin 5,000 UNIT/ML VIAL SQ SCH (05:57)
--- NOTE | 2017-06-21 09:23 | Electrocardiograph Report ---
[place] [id number] Test Date: 2017-06-17 Pat Name: Caroline Tena Department: 102 Room: 2NE26 Gender: F Spring Former: Lrs : 1940 Requested By: Brody Baker Order Number: [id number] Reading MD: Aj Rutherford DO Measurements Intervals [place] Rate: 94 P: NV: 0 QRS: -32 QRSD: 144 T: -59 QT: 406 QTc: 458 Interpretive Statements SINUS RHYTHM WITH FREQUENT PACs MARKED LEFT AXIS DEVIATION RIGHT BUNDLE BRANCH BLOCK VOLTAGE CRITERIA FOR [facility] ST DEVIATION AND MARKED T-WAVE ABNORMALITY, CONSIDER ANTEROLATERAL ISCHEMIA Electronically Signed On 06-21-2017 9:22:05 EST by Aj Rutherford DO
[2017-06-21] MEDS: amLODIPine 5 MG TABLET PO SCH (10:53)
[2017-06-21] MEDS: Multivit/Ca/Min/Fe/FA 1 TAB TABLET PO SCH (10:54)
--- NOTE | 2017-06-21 11:09 | Physician Discharge Referral ---
ExtendedCare Referral Info Transfer To: SNF Provider in Charge: Cookie Cooley Provider in Charge after Transfer: PCP Institutional Level of Care: Skilled - Diagnosis (1) Cardiac enzymes elevated Priority: Primary Status: Resolved (2) DVT prophylaxis Priority: Primary Status: Acute (3) Fall Priority: Primary Status: Acute (4) Hypertension Priority: Secondary Status: Chronic (5) UTI (urinary tract infection) Priority: Primary Status: Acute (6) Hypokalemia Priority: Primary Status: Resolved Prognosis: Fair Aware of Diagnosis: Patient Aware of Prognosis: Patient - Transfer Medications Home Medications: Calcium Citrate 200 mg PO BID 06/17/17 [History] Multivitamin [One Daily Essential] 1 each PO DAILY 06/17/17 [History] Oxybutynin [Ditropan] 5 mg PO BID 06/17/17 [History] Paroxetine HCl [Paxil] 10 mg PO QAM 06/17/17 [History] Potassium Chloride [Klor-Con 10] 10 meq PO DAILY 06/17/17 [History] Metoprolol [Lopressor] 50 mg PO BID 06/19/17 [History] Atenolol [Tenormin] 50 mg PO BID tablet 06/21/17 [Rx] Cefdinir [Omnicef] 300 mg PO DAILY capsule 06/21/17 [Rx] amLODIPine [Norvasc] 10 mg PO DAILY tablet 06/21/17 [Rx] Allergies/Adverse Reactions: 3 Allergy/AdvReac Type Severity Reaction Status Date / Time clarithromycin [From Biaxin] AdvReac See Verified 06/17/17 20:17 Comments codeine AdvReac See Verified 06/17/17 20:17 Comments Zolpidem [From Ambien] AdvReac See Verified 06/17/17 20:17 Comments - Respiratory Orders Smoking Cessation: Smoking cessation has been advised. For more information, call the [place] Tobacco Quit Line at 8-574-GWIS-NOW. - Advance Directives Code Status: Full Code - Mobility Orders Ambulate - Rehabiliation Orders Rehab Potential: Fair Rehab Orders: Evaluation for Physical Therapy, Evaluation for Occupational Therapy - Diet Orders Cardiac CERTIFICATION: I certify that the transfer of the above named patient to an Extended Care Facility is necessary for the continuing treatment of the diagnosis listed. The above information is true and accurate reflection of patient's current condition. Confidential - Redisclosure prohibited without a patient's written consent.
--- NOTE | 2017-06-21 11:10 | Discharge Summary ---
- NOTES TO OUTPATIENT PROVIDER Notes to Outpatient Provider: Amlodipine has been added for blood pressure control. Treated for E.coli UTI uncomplicated Orders not resulted at time of discharge: Pending orders 06/18/17 04:06 Culture,Blood [BC] Routine Culture,Blood,Additional [BC] Routine Date of Encounter: 06/21/17 Time of Encounter: 11:09 - Discharge Diagnosis (1) Cardiac enzymes elevated Priority: Primary Status: Resolved (2) DVT prophylaxis Priority: Primary Status: Acute (3) Fall Priority: Primary Status: Acute Qualifiers: Encounter type: initial encounter Qualified Code(s): W19.XXXA - Unspecified fall, initial encounter (4) Hypertension Priority: Secondary Status: Chronic Qualifiers: Hypertension type: essential hypertension Qualified Code(s): I10 - Essential (primary) hypertension (5) UTI (urinary tract infection) Priority: Primary Status: Acute Qualifiers: Urinary tract infection type: acute cystitis Hematuria presence: without hematuria Qualified Code(s): N30.00 - Acute cystitis without hematuria (6) Hypokalemia Priority: Primary Status: Resolved Hospital course: Ms. Tena is a 77 year old female with HTN, who was admitted to the hospital following a mechanical fall and elevated CK, she also had one episode of low grade fevers with a E.coli UTI She has been on antibiotics for UTI, received gentle hydration for elevated CK without rhabdomyolysis, potasium replacement for hypokalemia She was reviewed by PTOT with recommendation for SNF placement. She is medically stable to be discharged to SNF for physical and occupational therapy She was on tenormin for blood pressure at home, we added Norvasc inpatient for better control which was tolerated by the patient Follow up with PCP Discharge discussed with: patient, nurse, social work, case management - Time Spent with Patient Total time spent providing and/or coordinating discharge services: Greater than 30 minutes - Discharge Medications Home Medications: Calcium Citrate 200 mg PO BID 06/17/17 [History] Multivitamin [One Daily Essential] 1 each PO DAILY 06/17/17 [History] Oxybutynin [Ditropan] 5 mg PO BID 06/17/17 [History] Paroxetine HCl [Paxil] 10 mg PO QAM 06/17/17 [History] Potassium Chloride [Klor-Con 10] 10 meq PO DAILY 06/17/17 [History] Metoprolol [Lopressor] 50 mg PO BID 06/19/17 [History] Atenolol [Tenormin] 50 mg PO BID tablet 06/21/17 [Rx] Cefdinir [Omnicef] 300 mg PO DAILY capsule 06/21/17 [Rx] amLODIPine [Norvasc] 10 mg PO DAILY tablet 06/21/17 [Rx] Allergies/Adverse Reactions: 3 Allergy/AdvReac Type Severity Reaction Status Date / Time clarithromycin [From Biaxin] AdvReac See Verified 06/17/17 20:17 Comments codeine AdvReac See Verified 06/17/17 20:17 Comments Zolpidem [From Ambien] AdvReac See Verified 06/17/17 20:17 Comments Date of admission: 06/18/17 02:59 Primary care physician: Garrick Bruno MD Consults: 06/18/17 03:41 Consult to Occupational Therapy [CONS] Routine Comment: Evaluate, develop and implement POC Reason for Consult: fall Consult to Physical Therapy [CONS] Routine Comment: Evaluate, develop and implement POC Reason for Consult: fall 06/18/17 14:21 Consult to Psychiatry [CONS] Routine Consulting Provider: Psychiat[facility] [place] Reason for Consult: Decisional capacity, unable to care for self at home Call Completed: Yes Discharging clinician: Nagi Cooley Anticipated date of discharge: 06/21/17 - Constitutional Vitals: Temp Pulse Resp BP Pulse Ox 98.6 F 68 12 105/61 97 06/21/17 10:47 06/21/17 10:47 06/21/17 10:47 06/21/17 10:47 06/21/17 10:47 General appearance: Present: cachectic, disheveled, A&O X 3, pleasant, no acute distress, answers questions appropriately Exam: fragile looking - Head Head exam: Present: atraumatic, normocephalic - Eye Eye exam: Present: PERRL, conjuntiva pink, sclera anicteric Pupils: Present: PERRL - Neck Neck exam general surgery: Present: supple, trachea midline. Absent: lymphadenopathy - Respiratory Respiratory exam: Present: CTAB. Absent: accessory muscle use, rales, rhonchi, wheezes - Cardiovascular Cardiovascular exam: Present: RRR, +S1, +S2. Absent: diastolic murmur, gallop, rubs, systolic murmur - GI/Abdominal GI/Abdominal exam: Present: normal bowel sounds, soft, no peritoneal signs. Absent: distended, tenderness - Extremities Exam Extremities exam: Present: warm, radial pulses palpable and symmetrical. Absent : calf tenderness, cyanotic, pedal edema - Neurological Exam Neurological exam: Present: alert, CN II-XII intact, oriented X3, no focal deficits. Absent: pronater drift, facial droop, speech deficit - Skin Skin exam: Present: dry, intact - Patient Status Disposition: Transfer SNF Condition: Good Functional capacity at discharge: uses cane/walker Overall status at discharge: patient is progressing back to baseline - Discharge Instructions Instructions: Urinary Tract Infection in Women (DC), Chronic Hypertension (DC) , Fall Prevention (DC) Follow Up With: Garrick Bruno MD [Primary Care Provider] - - Diet and Activity Activity: as per physical therapy, resume usual activities as tolerated Diet: low salt diet - VTE Documentation of Mechanical Device: Intermittent pneumatic compression device
[2017-06-21] MEDS ORDERED: Cefdinir 300 MG CAPSULE PO SCH (11:15)
[2017-06-21 15:14] VITALS: BP 108/51
== END 2017-06-21 16:58 | DRG 690 ==
LOC: 2NENU 17:25 → EMEROO 17:25 → 2NENU 20:09 → SUATTDRO 06-18 02:59
PROVIDERS: ADMIT Internal Medicine; ATTEND Internal Medicine

== ENCOUNTER 2020-06-15 11:36 | Inpatient (IN) ==
[2020-06-15 12:22] LABS: Basophils % 0.2 %; Eosinophils # 0.2 K/mcL (0.0-0.6); Eosinophils % 1.1 %; Hematocrit 31.3 % (35.3-44.9); Hemoglobin 10.3 g/dL (11.5-15.4); Immature Granulocytes % 0.5 % (0-4); Lymphocytes # 0.9 K/mcL (0.6-4.6); Lymphocytes % 5.6 %; Mean Corpuscular HGB Conc 32.9 g/dL (31.6-35.5); Mean Corpuscular Hemoglobin 28.8 pg (28.0-33.3); Mean Corpuscular Volume 87.4 fL (83.0-100.0); Mean Platelet Volume 10.1 fL (9.4-12.4); Monocytes # 1.1 K/mcL (0.0-1.3); Monocytes % 7.1 %; Neutrophils # 13.3 K/mcL (1.6-8.9); Platelet Count 192 K/mcL (140-400); Red Blood Count 3.58 M/mcL (3.82-4.97); Red Cell Distribution Width 14.7 % (11.5-14.5); Segmented Neutrophils % 85.5 %; White Blood Count 15.5 K/mcL (4.3-11.1)
[2020-06-15 13:46] LABS: Albumin 3.1 g/dL (3.5-5.7); Albumin/Globulin Ratio 0.9 (1.1-2.2); Bilirubin,Direct 0.1 mg/dL (0.0-0.2); Bilirubin,Indirect 0.6 mg/dL (0.0-1.0); Bilirubin,Total 0.7 mg/dL (0.3-1.0); Calcium 9.5 mg/dL (8.6-10.3); Globulin 3.5 g/dL (2.4-3.5); Potassium 4.3 mEq/L (3.5-5.1); Total Protein 6.6 g/dL (6.4-8.9)
[2020-06-15] MEDS ORDERED: cefTRIAXone 1,000 MG in Water for inj. (sterile) 10 ML IVP ONE (14:54)
[2020-06-15] MEDS ORDERED: 0.9 % Sodium Chloride 1,000 ML IVC ONE (14:54)
[2020-06-15] MEDS ORDERED: Milk and Molasses Enema 200 ML RC ONE (15:04)
[2020-06-15 15:31] LABS: Bacteria,Urine Few per hpf (None-Few); Bilirubin,Urine Negative (Negative); Blood,Urine Moderate (Negative); Clarity,Urine Turbid (Clear); Color,Urine Yellow (Yellow); Glucose,Urine (UA) Normal (Normal); Ketones,Urine Negative (Negative); Leukocyte Esterase,Urine Small (Negative); Mucus,Urine Few per lpf (None-Few); Nitrite,Urine Negative (Negative); PH,Urine 5.5 pH Units (5.0-8.0); Protein,Urine 70 mg/dL (Neg-Trace); RBC,Urine TNTC per hpf (0-3); Specific Gravity,Urine 1.015 (1.010-1.025); Squamous Epithelial Cell,Urine Few per hpf (None-Few); Urobilinogen,Urine Normal (Normal); WBC,Urine 15-30 per hpf (0-3)
[2020-06-15] MEDS ORDERED: Naloxone 0.4 MG/ML INJ IVP PRN (17:39)
[2020-06-15] MEDS: *HR* Heparin 5,000 UNIT/ML VIAL SQ SCH (20:09)
[2020-06-15] MEDS: 0.9 % Sodium Chloride 1,000 ML IVC SCH (20:09)
[2020-06-16] MEDS: *HR* Heparin 5,000 UNIT/ML VIAL SQ SCH ×2 (05:38→16:44)
[2020-06-16 06:29] LABS: Basophils % 0.2 %; Eosinophils % 0.3 %; Hematocrit 31.7 % (35.3-44.9); Hemoglobin 10.4 g/dL (11.5-15.4); Immature Granulocytes % 0.5 % (0-4); Lymphocytes # 0.5 K/mcL (0.6-4.6); Lymphocytes % 3.7 %; Mean Corpuscular HGB Conc 32.8 g/dL (31.6-35.5); Mean Corpuscular Hemoglobin 29.2 pg (28.0-33.3); Mean Platelet Volume 9.6 fL (9.4-12.4); Monocytes # 0.8 K/mcL (0.0-1.3); Monocytes % 6.3 %; Neutrophils # 11.7 K/mcL (1.6-8.9); Platelet Count 190 K/mcL (140-400); Red Blood Count 3.56 M/mcL (3.82-4.97); Red Cell Distribution Width 14.6 % (11.5-14.5); White Blood Count 13.1 K/mcL (4.3-11.1)
[2020-06-16 07:22] LABS: Calcium 9.1 mg/dL (8.6-10.3); Potassium 3.1 mEq/L (3.5-5.1)
[2020-06-16] MEDS ORDERED: Potassium Chloride Elixir 20 MEQ/15 ML UDC PO ONE (07:46)
[2020-06-16] MEDS: D5% in 0.9% NACL 1,000 ML IVC SCH ×2 (08:01→18:33)
[2020-06-16] MEDS: polyethylene glycoL 3350 17 GM POWD.PACK PO SCH (08:02)
[2020-06-16] MEDS: cefTRIAXone 1,000 MG in Water for inj. (sterile) 10 ML IVP SCH (08:18)
[2020-06-16] MEDS: 0.9 % Sodium Chloride 1,000 ML IVC SCH (18:52)
[2020-06-17] MEDS: D5% in 0.9% NACL 1,000 ML IVC SCH (04:26)
[2020-06-17 05:48] LABS: Basophils % 0.3 %; Eosinophils # 0.4 K/mcL (0.0-0.6); Eosinophils % 2.7 %; Hematocrit 30.7 % (35.3-44.9); Hemoglobin 9.7 g/dL (11.5-15.4); Immature Granulocytes % 0.4 % (0-4); Lymphocytes # 0.9 K/mcL (0.6-4.6); Lymphocytes % 6.7 %; Mean Corpuscular HGB Conc 31.6 g/dL (31.6-35.5); Mean Corpuscular Hemoglobin 28.4 pg (28.0-33.3); Mean Platelet Volume 9.6 fL (9.4-12.4); Monocytes # 0.8 K/mcL (0.0-1.3); Monocytes % 6.3 %; Neutrophils # 11.2 K/mcL (1.6-8.9); Platelet Count 194 K/mcL (140-400); Red Blood Count 3.41 M/mcL (3.82-4.97); Red Cell Distribution Width 14.8 % (11.5-14.5); Segmented Neutrophils % 83.6 %; White Blood Count 13.4 K/mcL (4.3-11.1)
[2020-06-17] MEDS: *HR* Heparin 5,000 UNIT/ML VIAL SQ SCH ×2 (05:54→18:15)
[2020-06-17 06:08] LABS: BUN/Creatinine Ratio 28 (6-26); Blood Urea Nitrogen 13 mg/dL (8-23); Calcium 8.4 mg/dL (8.6-10.3); Carbon Dioxide 26 mEq/L (23-29); Chloride 109 mEq/L (98-107); Glucose 116 mg/dL (70-105); Osmolality,Calculated 295 (280-300); Potassium 3.4 mEq/L (3.5-5.1); Sodium 142 mEq/L (136-145); eGFR For African Americans > 60 (> 60); eGFR For Non-African Americans > 60 (> 60)
[2020-06-17] MEDS ORDERED: Potassium Chloride Elixir 20 MEQ/15 ML UDC PO ONE (07:28)
[2020-06-17] MEDS: polyethylene glycoL 3350 17 GM POWD.PACK PO SCH (09:11)
[2020-06-17] MEDS: cefTRIAXone 1,000 MG in Water for inj. (sterile) 10 ML IVP SCH (09:13)
[2020-06-17] MEDS: ESCITALOPRAM OXALATE 2.5 MG PO SCH (09:14)
[2020-06-18] MEDS: Acetaminophen 325 MG TABLET PO PRN ×2 (01:06→20:04)
[2020-06-18] MEDS: *HR* Heparin 5,000 UNIT/ML VIAL SQ SCH ×2 (05:48→16:36)
[2020-06-18 06:25] LABS: BUN/Creatinine Ratio 21 (6-26); Blood Urea Nitrogen 9 mg/dL (8-23); Calcium 8.3 mg/dL (8.6-10.3); Carbon Dioxide 27 mEq/L (23-29); Chloride 104 mEq/L (98-107); Glucose 103 mg/dL (70-105); Osmolality,Calculated 283 (280-300); Potassium 3.7 mEq/L (3.5-5.1); Sodium 137 mEq/L (136-145); eGFR For African Americans > 60 (> 60); eGFR For Non-African Americans > 60 (> 60)
[2020-06-18 06:32] LABS: Hematocrit 31.4 % (35.3-44.9); Hemoglobin 9.9 g/dL (11.5-15.4); Mean Corpuscular HGB Conc 31.5 g/dL (31.6-35.5); Mean Corpuscular Hemoglobin 28.7 pg (28.0-33.3); Mean Platelet Volume 10.1 fL (9.4-12.4); Platelet Count 234 K/mcL (140-400); Red Blood Count 3.45 M/mcL (3.82-4.97); Red Cell Distribution Width 14.6 % (11.5-14.5); White Blood Count 15.4 K/mcL (4.3-11.1)
[2020-06-18] MEDS: Cefepime HCl 1,000 MG in Water for inj. (sterile) 10 ML IVP SCH ×3 (10:35→23:22)
[2020-06-18] MEDS: polyethylene glycoL 3350 17 GM POWD.PACK PO SCH (10:36)
[2020-06-18] MEDS: ESCITALOPRAM OXALATE 2.5 MG PO SCH (10:37)
[2020-06-19] MEDS: *HR* Labetalol 20 MG/4 ML SYRINGE IVP PRN (03:43)
[2020-06-19] MEDS: *HR* Heparin 5,000 UNIT/ML VIAL SQ SCH ×2 (05:33→16:16)
[2020-06-19 06:11] LABS: BUN/Creatinine Ratio 20 (6-26); Blood Urea Nitrogen 8 mg/dL (8-23); Calcium 8.5 mg/dL (8.6-10.3); Carbon Dioxide 28 mEq/L (23-29); Chloride 102 mEq/L (98-107); Glucose 98 mg/dL (70-105); Osmolality,Calculated 278 (280-300); Potassium 3.7 mEq/L (3.5-5.1); Sodium 135 mEq/L (136-145); eGFR For African Americans > 60 (> 60); eGFR For Non-African Americans > 60 (> 60)
[2020-06-19 07:21] LABS: Hematocrit 31.8 % (35.3-44.9); Hemoglobin 10.1 g/dL (11.5-15.4); Mean Corpuscular HGB Conc 31.8 g/dL (31.6-35.5); Mean Corpuscular Hemoglobin 28.9 pg (28.0-33.3); Mean Corpuscular Volume 90.9 fL (83.0-100.0); Mean Platelet Volume 9.4 fL (9.4-12.4); Platelet Count 260 K/mcL (140-400); Red Cell Distribution Width 14.3 % (11.5-14.5); White Blood Count 11.2 K/mcL (4.3-11.1)
[2020-06-19] MEDS: polyethylene glycoL 3350 17 GM POWD.PACK PO SCH (08:20)
[2020-06-19] MEDS: ESCITALOPRAM OXALATE 2.5 MG PO SCH (08:21)
[2020-06-19] MEDS: lisinopriL 10 MG TABLET PO SCH (08:21)
[2020-06-19] MEDS: Cefepime HCl 1,000 MG in Water for inj. (sterile) 10 ML IVP SCH ×3 (08:21→23:39)
[2020-06-19] MEDS: Acetaminophen 325 MG TABLET PO PRN (20:09)
[2020-06-20] MEDS: *HR* Labetalol 20 MG/4 ML SYRINGE IVP PRN (03:59)
[2020-06-20] MEDS: *HR* Heparin 5,000 UNIT/ML VIAL SQ SCH (05:33)
[2020-06-20] MEDS: ESCITALOPRAM OXALATE 2.5 MG PO SCH (08:55)
[2020-06-20] MEDS: lisinopriL 10 MG TABLET PO SCH (08:55)
[2020-06-20] MEDS: Cefepime HCl 1,000 MG in Water for inj. (sterile) 10 ML IVP SCH (08:55)
[2020-06-20] MEDS: polyethylene glycoL 3350 17 GM POWD.PACK PO SCH (08:55)
[2020-06-20 10:46] VITALS: BP 179/87
== END 2020-06-20 11:25 | DRG 690 ==
LOC: 2ANU 11:36 → EMEROOARM 11:36 → 2ANU 18:25 → SUATTDRO 18:53
PROVIDERS: ADMIT Internal Medicine; ATTEND Internal Medicine